=== PATIENT | male | born 1965 | race Caucasian/White ===

== ENCOUNTER 2022-06-16 18:09 | Emergency (ER) | payer OTHER, BC | END 2022-06-16 21:15 | disposition home or self-care (01) | LOC: JP.ED 18:09 | DX: S42.022A Displaced fracture of shaft of left clavicle, initial encounter for closed fracture (principal); Z79.899 Other long term (current) drug therapy; V86.56XA Driver of dirt bike or motor/cross bike injured in nontraffic accident, initial encounter; Y92.410 Unspecified street and highway as the place of occurrence of the external cause | CPT/HCPCS: 73030-LT; 73502-LT; 99283 ==